=== PATIENT | female | born 1945 | race Caucasian/White ===

== ENCOUNTER 2020-09-01 20:45 | Inpatient (IN) ==
[2020-09-01] MEDS ORDERED: ALBUTEROL/IPRATROPIUM 3 ML NEB RESP TX STA (21:30)
[2020-09-01 21:32] LABS: Basophils % 0.2 % (0.0-0.8); Hematocrit 47.6 VOL% (35.7-47.0); Hemoglobin 14.7 GM/DL (12.0-16.0); Immature Granulocytes % 0.5 %; Immature Granulocytes Absolute 0.04 #; Lymphocytes # 0.6 10*3/uL (1.4-4.0); Lymphocytes % 6.8 % (21.3-54.2); Mean Corpuscular HGB Conc 30.9 GM/DL (32-36); Mean Corpuscular Volume 97.3 FL (87-102); Mean Platelet Volume 10.4 FL (9.6-12.0); Monocytes % 5.3 % (1.7-12.7); NRBC # 0.02 10*3/uL; Neutrophils % 87.2 % (38.7-73.9); Platelet Count 231 T/CUMM (130-400); Red Blood Count 4.89 MC/CUMM (3.8-5.5); Red Cell Distribution Width 16.6 % (9.3-17.3); White Blood Count 8.4 T/CUMM (4-12)
[2020-09-01 21:52] LABS: INR 1.1; PT Patient Result 11.8 SECS (9.8-11.9); Partial Thromboplastin Time 25.6 SECS (23.9-33.8)
[2020-09-01 21:53] LABS: Thyroid Stimulating Hormone 2.19 uIU/ml (0.358-3.74)
[2020-09-01 21:57] LABS: Alanine Aminotransferase 34 U/L (13-56); Albumin 2.8 G/DL (3.4-5.0); Alkaline Phosphatase 90 U/L (45-117); Aspartate Amino Transferase 74 U/L (0-37); Blood Urea Nitrogen 30 MG/DL (7-18); CKMB % 1.1 %; Calcium 9.2 MG/DL (8.5-10.1); Carbon Dioxide 25 MMOL/L (21-32); Estimated Glom Filtration Rate 62 ML/MIN; Glucose 202 MG/DL (74-106); Osmolality,Calculated 294.1 MOS/KG (273-304); Potassium 4.2 MMOL/L (3.5-5.1); Sodium 142 MMOL/L (136-145); Total Protein 7.5 G/DL (6.4-8.3); Troponin I < 0.015 NG/ML (0.00-0.045)
[2020-09-01 21:59] LABS: Bacteria,Urine Moderate /HPF (Few); Bilirubin,Urine Negative (Negative); Blood, Urine Large mg/dL (Negative); Glucose,Urine (UA) 50 mg/dL (Negative); Ketones,Urine Negative (Negative); Mucus,Urine Occasional /LPF (Occasional); Nitrite,Urine Negative (Negative); Protein,Urine 100 MG/DL; RBC,Urine <1 /HPF (0-4); Squamous Epithelial Cell,Urine Occasional /HPF (0-10); Urine Appearance CLEAR (Clear); Urine Color Yellow (Yellow); Urine Urobilinogen < 2.0 EU/DL (0.2-1.0); WBC,Urine 1 /HPF (0-6)
[2020-09-01] MEDS ORDERED: SODIUM CHLORIDE 0.9% 1,000 ML IV STA (22:20)
[2020-09-01 22:36] LABS: Barbiturates Screen,Urine Negative (Negative); Benzodiazepines Screen,Urine Negative (Negative); Cannabinoid Screen,Urine Negative (Negative); Opiate Screen,Urine Negative (Negative); Phencyclidine Screen,Urine Negative (Negative)
[2020-09-01] MEDS ORDERED: hydrALAZINE 20 MG/1 ML VIAL IV STA (23:18)
[2020-09-01] MEDS ORDERED: hydrALAZINE 20 MG/1 ML VIAL ONE (23:18)
[2020-09-01] MEDS ORDERED: ROCURONIUM 100 MG/10 ML VIAL IV ONE (23:44)
[2020-09-01] MEDS ORDERED: ETOMIDATE 20 MG/10 ML VIAL IV ONE (23:44)
[2020-09-02] MEDS ORDERED: DEXTROSE 50% 25 GM/50 ML SYRINGE IV ONE (00:30)
[2020-09-02 00:33] LABS: ABG HCO3 24.4 MMOL/L (20-26); ABG Oxygen Saturation 99.9 % (95-100); ABG PCO2 34.2 MM HG (35-48); ABG PH 7.443 (7.35-7.45); ABG TCO2 19.7 MMOL/L (23-27); Allen Test Positive; Pt O2 Delivery Device Ventilator
[2020-09-02] MEDS ORDERED: ALBUTEROL 2.5 MG/3 ML NEB RESP TX PRN (00:35)
[2020-09-02] MEDS ORDERED: DEXTROSE 50% 25 GM/50 ML VIAL IV PRN (00:54)
[2020-09-02] MEDS ORDERED: GLUCAGON 1 MG VIAL IM PRN (00:54)
[2020-09-02] MEDS: ENOXAPARIN 40 MG/0.4 ML SYRINGE SUBCUT SCH (02:00)
[2020-09-02] MEDS: DEXTROSE 5% NACL 0.9% 1,000 ML IV SCH ×3 (02:00→20:34)
[2020-09-02] MEDS: HYDROCORTISONE 100 MG VIAL IV SCH ×2 (02:00→13:30)
[2020-09-02 02:46] LABS: ABG Base Excess -0.6 MMOL/L (-2.5-2.5); ABG HCO3 22.9 MMOL/L (20-26); ABG Oxygen Saturation 97.9 % (95-100); ABG PCO2 34.6 MM HG (35-48); ABG PH 7.438 (7.35-7.45); ABG PO2 108.8 MM HG (80-95); ABG TCO2 23.9 MMOL/L (23-27); Allen Test Positive; Pt O2 Delivery Device Ventilator
[2020-09-02 02:48] LABS: CKMB % 0.9 %; Troponin I < 0.015 NG/ML (0.00-0.045)
[2020-09-02] MEDS: INSULIN REGULAR 100 UNIT/ML SUBCUT SCH ×6 (03:37→21:21)
[2020-09-02 04:19] LABS: Alanine Aminotransferase 35 U/L (13-56); Albumin 2.7 G/DL (3.4-5.0); Alkaline Phosphatase 93 U/L (45-117); Aspartate Amino Transferase 82 U/L (0-37); Blood Urea Nitrogen 24 MG/DL (7-18); CKMB % 0.8 %; Carbon Dioxide 27 MMOL/L (21-32); Estimated Glom Filtration Rate 62 ML/MIN; Free T4 (Free Thyroxine) 1.14 NG/DL (0.76-1.46); Glucose 150 MG/DL (74-106); HDL Cholesterol 56 MG/DL (40-60); Osmolality,Calculated 289.1 MOS/KG (273-304); Potassium 4.4 MMOL/L (3.5-5.1); Risk Ratio 2.82; Sodium 142 MMOL/L (136-145); Total Protein 7.4 G/DL (6.4-8.3); Triglycerides 93 MG/DL (2-150); Troponin I < 0.015 NG/ML (0.00-0.045); VLDL CHOLESTEROL 18.6 MG/DL
[2020-09-02 04:29] LABS: Basophils % 0.1 % (0.0-0.8); Hematocrit 51.6 VOL% (35.7-47.0); Immature Granulocytes % 0.4 %; Immature Granulocytes Absolute 0.04 #; Lymphocytes % 8.9 % (21.3-54.2); Mean Corpuscular HGB Conc 29.7 GM/DL (32-36); Mean Corpuscular Volume 101.4 FL (87-102); Mean Platelet Volume 10.2 FL (9.6-12.0); Monocytes % 8.3 % (1.7-12.7); Neutrophils % 82.3 % (38.7-73.9); Platelet Count 267 T/CUMM (130-400); Red Blood Count 5.09 MC/CUMM (3.8-5.5); Red Cell Distribution Width 16.7 % (9.3-17.3); White Blood Count 10.9 T/CUMM (4-12)
[2020-09-02 04:31] LABS: Hemoglobin 15.3 GM/DL (12.0-16.0)
[2020-09-02] MEDS: LEVOTHYROXINE 50 MCG TABLET PO SCH (08:18)
[2020-09-02] MEDS: LOSARTAN 25 MG TABLET PO SCH ×2 (08:45→09:04)
[2020-09-02] MEDS: carvediloL 6.25 MG TABLET PO SCH ×3 (08:45→20:29)
[2020-09-02] MEDS: ROSUVASTATIN 20 MG TABLET PO SCH (08:45)
[2020-09-02] MEDS: DESITIN 4OZ/NYSTATIN 15 GRAM MIXTURE PASTE TOP SCH ×2 (16:24→20:29)
[2020-09-03] MEDS: DEXTROSE 5% NACL 0.9% 1,000 ML IV SCH ×2 (00:30→07:00)
[2020-09-03] MEDS: INSULIN REGULAR 100 UNIT/ML SUBCUT SCH ×7 (01:00→20:00)
[2020-09-03] MEDS: ENOXAPARIN 40 MG/0.4 ML SYRINGE SUBCUT SCH (02:00)
[2020-09-03] MEDS: HYDROCORTISONE 100 MG VIAL IV SCH ×2 (02:05→12:00)
[2020-09-03 04:26] LABS: ABG Base Excess 0.9 MMOL/L (-2.5-2.5); ABG HCO3 25.3 MMOL/L (20-26); ABG Oxygen Saturation 99.8 % (95-100); ABG PCO2 39.4 MM HG (35-48); ABG PH 7.417 (7.35-7.45); ABG TCO2 22.2 MMOL/L (23-27)
[2020-09-03 05:00] LABS: Basophils % 0.2 % (0.0-0.8); Hematocrit 42.6 VOL% (35.7-47.0); Hemoglobin 12.6 GM/DL (12.0-16.0); Immature Granulocytes % 0.5 %; Immature Granulocytes Absolute 0.06 #; Lymphocytes # 0.8 10*3/uL (1.4-4.0); Lymphocytes % 6.4 % (21.3-54.2); Mean Corpuscular HGB Conc 29.6 GM/DL (32-36); Mean Corpuscular Volume 100.9 FL (87-102); Mean Platelet Volume 10.2 FL (9.6-12.0); Monocytes % 9.9 % (1.7-12.7); Platelet Count 244 T/CUMM (130-400); Red Blood Count 4.22 MC/CUMM (3.8-5.5); Red Cell Distribution Width 16.7 % (9.3-17.3); White Blood Count 12.8 T/CUMM (4-12)
[2020-09-03 05:09] LABS: Osmolality,Calculated 300.6 MOS/KG (273-304); Potassium 4.2 MMOL/L (3.5-5.1)
[2020-09-03] MEDS: LEVOTHYROXINE 50 MCG TABLET PO SCH (06:45)
[2020-09-03] MEDS: PANTOPRAZOLE 40 MG VIAL IV SCH (08:45)
[2020-09-03] MEDS: ROSUVASTATIN 20 MG TABLET PO SCH (08:45)
[2020-09-03] MEDS: carvediloL 6.25 MG TABLET PO SCH ×2 (08:45→21:41)
[2020-09-03] MEDS: DESITIN 4OZ/NYSTATIN 15 GRAM MIXTURE PASTE TOP SCH ×2 (08:45→21:41)
[2020-09-03] MEDS: LOSARTAN 25 MG TABLET PO SCH (08:45)
[2020-09-03] MEDS: amLODIPine 10 MG TABLET PER TUBE SCH (09:56)
[2020-09-03] MEDS: LINEZOLID INJ 600 MG in PREMIX 1 EACH IV SCH ×2 (10:41→21:40)
[2020-09-03] MEDS ORDERED: HYDROCORTISONE 100 MG VIAL ONE (11:55)
[2020-09-04] MEDS: HYDROCORTISONE 100 MG VIAL IV SCH ×2 (00:45→13:10)
[2020-09-04] MEDS: INSULIN REGULAR 100 UNIT/ML SUBCUT SCH ×6 (00:45→20:57)
[2020-09-04] MEDS: ENOXAPARIN 40 MG/0.4 ML SYRINGE SUBCUT SCH (00:45)
[2020-09-04 04:20] LABS: Basophils % 0.1 % (0.0-0.8); Hematocrit 38.2 VOL% (35.7-47.0); Hemoglobin 11.8 GM/DL (12.0-16.0); Immature Granulocytes % 0.4 %; Immature Granulocytes Absolute 0.06 #; Lymphocytes % 7.6 % (21.3-54.2); Mean Corpuscular HGB Conc 30.9 GM/DL (32-36); Mean Platelet Volume 10.5 FL (9.6-12.0); Monocytes % 8.3 % (1.7-12.7); Neutrophils % 83.6 % (38.7-73.9); Platelet Count 189 T/CUMM (130-400); Red Blood Count 3.82 MC/CUMM (3.8-5.5); Red Cell Distribution Width 16.5 % (9.3-17.3); White Blood Count 13.7 T/CUMM (4-12)
[2020-09-04 04:37] LABS: Calcium 8.4 MG/DL (8.5-10.1)
[2020-09-04 05:00] LABS: ABG Base Excess -1.3 MMOL/L (-2.5-2.5); ABG HCO3 23.7 MMOL/L (20-26); ABG Oxygen Saturation 98.2 % (95-100); ABG PCO2 40.8 MM HG (35-48); ABG PH 7.382 (7.35-7.45); ABG PO2 122.3 MM HG (80-95); Allen Test Positive; Pt O2 Delivery Device Ventilator
[2020-09-04] MEDS: LEVOTHYROXINE 50 MCG TABLET PO SCH (06:36)
[2020-09-04] MEDS: PANTOPRAZOLE 40 MG VIAL IV SCH (08:55)
[2020-09-04] MEDS: LINEZOLID INJ 600 MG in PREMIX 1 EACH IV SCH ×2 (09:05→21:01)
[2020-09-04] MEDS: ROSUVASTATIN 20 MG TABLET PO SCH (09:10)
[2020-09-04] MEDS: amLODIPine 10 MG TABLET PER TUBE SCH (09:10)
[2020-09-04] MEDS: carvediloL 6.25 MG TABLET PO SCH ×2 (09:10→20:58)
[2020-09-04] MEDS: DESITIN 4OZ/NYSTATIN 15 GRAM MIXTURE PASTE TOP SCH ×2 (10:05→20:58)
[2020-09-04] MEDS: LEVOFLOXACIN INJ 750 MG in PREMIX 1 EACH IV SCH (11:35)
[2020-09-04] MEDS: MORPHINE 4 MG/1 ML VIAL IV PRN (18:19)
[2020-09-04] MEDS ORDERED: HYDROCORTISONE 100 MG VIAL IV SCH (21:00)
[2020-09-05] MEDS: INSULIN REGULAR 100 UNIT/ML SUBCUT SCH ×7 (01:00→23:49)
[2020-09-05] MEDS: ENOXAPARIN 40 MG/0.4 ML SYRINGE SUBCUT SCH (01:30)
[2020-09-05 03:26] LABS: ABG Base Excess 1.1 MMOL/L (-2.5-2.5); ABG HCO3 25.4 MMOL/L (20-26); ABG Oxygen Saturation 98.6 % (95-100); ABG PCO2 42.6 MM HG (35-48); ABG PH 7.396 (7.35-7.45); ABG TCO2 23.5 MMOL/L (23-27)
[2020-09-05] MEDS: LEVOTHYROXINE 50 MCG TABLET PO SCH (06:05)
[2020-09-05 06:27] LABS: Basophils % 0.2 % (0.0-0.8); Hematocrit 36.4 VOL% (35.7-47.0); Hemoglobin 10.9 GM/DL (12.0-16.0); Immature Granulocytes % 0.8 %; Immature Granulocytes Absolute 0.08 #; Lymphocytes # 1.6 10*3/uL (1.4-4.0); Mean Corpuscular HGB Conc 29.9 GM/DL (32-36); Mean Corpuscular Volume 99.7 FL (87-102); Mean Platelet Volume 10.4 FL (9.6-12.0); Monocytes % 8.6 % (1.7-12.7); Neutrophils % 74.4 % (38.7-73.9); Platelet Count 182 T/CUMM (130-400); Red Blood Count 3.65 MC/CUMM (3.8-5.5); Red Cell Distribution Width 16.3 % (9.3-17.3)
[2020-09-05 06:42] LABS: Calcium 8.6 MG/DL (8.5-10.1); Osmolality,Calculated 295.1 MOS/KG (273-304); Potassium 4.2 MMOL/L (3.5-5.1)
[2020-09-05] MEDS: HYDROCORTISONE 100 MG VIAL IV SCH (08:10)
[2020-09-05] MEDS: PANTOPRAZOLE 40 MG VIAL IV SCH (08:10)
[2020-09-05] MEDS: ROSUVASTATIN 20 MG TABLET PO SCH (08:15)
[2020-09-05] MEDS: LINEZOLID INJ 600 MG in PREMIX 1 EACH IV SCH (08:15)
[2020-09-05] MEDS: amLODIPine 10 MG TABLET PER TUBE SCH (08:15)
[2020-09-05] MEDS: carvediloL 6.25 MG TABLET PO SCH ×2 (08:15→22:27)
[2020-09-05] MEDS: LINEZOLID 600 MG TABLET PER TUBE SCH ×2 (11:00→21:40)
[2020-09-05] MEDS: FAMOTIDINE 8 MG/ML 50 ML/BOTTLE PER TUBE SCH ×2 (11:00→21:41)
[2020-09-05] MEDS: HYDROCORTISONE 10 MG TABLET PER TUBE SCH ×2 (11:00→21:41)
[2020-09-05] MEDS: LEVOFLOXACIN INJ 750 MG in PREMIX 1 EACH IV SCH (11:05)
[2020-09-05] MEDS: MORPHINE 4 MG/1 ML VIAL IV PRN (15:15)
[2020-09-05] MEDS: DESITIN 4OZ/NYSTATIN 15 GRAM MIXTURE PASTE TOP SCH ×2 (16:15→21:41)
[2020-09-06] MEDS: ENOXAPARIN 40 MG/0.4 ML SYRINGE SUBCUT SCH (00:38)
[2020-09-06 03:51] LABS: ABG Base Excess 0.6 MMOL/L (-2.5-2.5); ABG HCO3 24.9 MMOL/L (20-26); ABG Oxygen Saturation 93.2 % (95-100); ABG PCO2 43.1 MM HG (35-48); ABG PH 7.385 (7.35-7.45); ABG PO2 68.7 MM HG (80-95); ABG TCO2 23.3 MMOL/L (23-27); Allen Test Positive; Pt O2 Delivery Device Ventilator
[2020-09-06 04:16] LABS: Basophils % 0.4 % (0.0-0.8); Hematocrit 35.8 VOL% (35.7-47.0); Hemoglobin 10.9 GM/DL (12.0-16.0); Immature Granulocytes % 1.4 %; Immature Granulocytes Absolute 0.13 #; Lymphocytes # 1.3 10*3/uL (1.4-4.0); Lymphocytes % 13.8 % (21.3-54.2); Mean Corpuscular HGB Conc 30.4 GM/DL (32-36); Mean Corpuscular Volume 99.7 FL (87-102); Mean Platelet Volume 10.9 FL (9.6-12.0); Monocytes % 7.4 % (1.7-12.7); Platelet Count 170 T/CUMM (130-400); Red Blood Count 3.59 MC/CUMM (3.8-5.5); Red Cell Distribution Width 16.3 % (9.3-17.3); White Blood Count 9.1 T/CUMM (4-12)
[2020-09-06] MEDS: INSULIN REGULAR 100 UNIT/ML SUBCUT SCH ×6 (04:24→23:50)
[2020-09-06 04:37] LABS: Calcium 8.5 MG/DL (8.5-10.1); Osmolality,Calculated 290.7 MOS/KG (273-304); Potassium 4.5 MMOL/L (3.5-5.1)
[2020-09-06] MEDS: LEVOTHYROXINE 50 MCG TABLET PO SCH (05:19)
[2020-09-06] MEDS: FAMOTIDINE 8 MG/ML 50 ML/BOTTLE PER TUBE SCH ×2 (08:05→21:43)
[2020-09-06] MEDS: HYDROCORTISONE 10 MG TABLET PER TUBE SCH ×2 (08:05→21:43)
[2020-09-06] MEDS: amLODIPine 10 MG TABLET PER TUBE SCH (08:05)
[2020-09-06] MEDS: ROSUVASTATIN 20 MG TABLET PO SCH (08:05)
[2020-09-06] MEDS: LINEZOLID 600 MG TABLET PER TUBE SCH ×2 (08:05→21:43)
[2020-09-06] MEDS: carvediloL 6.25 MG TABLET PO SCH ×2 (08:17→21:43)
[2020-09-06] MEDS: DESITIN 4OZ/NYSTATIN 15 GRAM MIXTURE PASTE TOP SCH ×2 (08:17→21:43)
[2020-09-06 09:56] LABS: HIV Antigen/Antibody Result Nonreactive (Nonreactive); Hepatitis B Surface Ag Quant < 0.10 Index; Hepatitis B Surface Ag Result Non-Reactive (NonReactive); Hepatitis C Virus Ab Quant 0.02 Index; Hepatitis C Virus Ab Result Non-Reactive (NonReactive)
[2020-09-06] MEDS: LEVOFLOXACIN INJ 750 MG in PREMIX 1 EACH IV SCH (11:57)
[2020-09-06] MEDS: ACETAMINOPHEN 325 MG TABLET PO PRN (12:20)
[2020-09-07] MEDS: ENOXAPARIN 40 MG/0.4 ML SYRINGE SUBCUT SCH (00:39)
[2020-09-07] MEDS: INSULIN REGULAR 100 UNIT/ML SUBCUT SCH ×6 (03:47→23:38)
[2020-09-07 04:40] LABS: ABG Base Excess 2.2 MMOL/L (-2.5-2.5); ABG HCO3 26.5 MMOL/L (20-26); ABG PH 7.439 (7.35-7.45); ABG PO2 90.1 MM HG (80-95); ABG TCO2 27.7 MMOL/L (23-27); Allen Test Positive
[2020-09-07 05:28] LABS: Calcium 8.5 MG/DL (8.5-10.1); Potassium 4.9 MMOL/L (3.5-5.1)
[2020-09-07] MEDS: LEVOTHYROXINE 50 MCG TABLET PO SCH (06:08)
[2020-09-07 06:37] LABS: Basophils % 0.6 % (0.0-0.8); Hematocrit 41.9 VOL% (35.7-47.0); Hemoglobin 11.9 GM/DL (12.0-16.0); Immature Granulocytes % 1.9 %; Immature Granulocytes Absolute 0.12 #; Lymphocytes # 1.7 10*3/uL (1.4-4.0); Lymphocytes % 26.1 % (21.3-54.2); Mean Corpuscular HGB Conc 28.4 GM/DL (32-36); Mean Corpuscular Volume 103.7 FL (87-102); Mean Platelet Volume 11.6 FL (9.6-12.0); Monocytes % 11.8 % (1.7-12.7); Neutrophils % 59.6 % (38.7-73.9); Platelet Count 163 T/CUMM (130-400); Red Blood Count 4.04 MC/CUMM (3.8-5.5); Red Cell Distribution Width 16.1 % (9.3-17.3); White Blood Count 6.4 T/CUMM (4-12)
[2020-09-07 06:48] LABS: Hypochromasia Slight
[2020-09-07 06:49] LABS: Anisocytosis 1+; Microcytosis 1+; Platelet Estimate Adequate
[2020-09-07] MEDS: HYDROCORTISONE 10 MG TABLET PER TUBE SCH ×2 (08:32→19:01)
[2020-09-07] MEDS: LINEZOLID 600 MG TABLET PER TUBE SCH (08:32)
[2020-09-07] MEDS: amLODIPine 10 MG TABLET PER TUBE SCH (08:32)
[2020-09-07] MEDS: carvediloL 6.25 MG TABLET PO SCH ×3 (08:32→21:12)
[2020-09-07] MEDS: FAMOTIDINE 8 MG/ML 50 ML/BOTTLE PER TUBE SCH ×2 (08:32→21:12)
[2020-09-07] MEDS: ROSUVASTATIN 20 MG TABLET PO SCH (08:32)
[2020-09-07] MEDS: DESITIN 4OZ/NYSTATIN 15 GRAM MIXTURE PASTE TOP SCH ×2 (08:51→21:12)
[2020-09-07] MEDS ORDERED: hydrALAZINE 20 MG/1 ML VIAL IV PRN (08:54)
[2020-09-07] MEDS: LEVOFLOXACIN 750 MG TABLET PO SCH (10:05)
[2020-09-07] MEDS: FUROSEMIDE 40 MG TABLET PO SCH (10:05)
[2020-09-08] MEDS: ENOXAPARIN 40 MG/0.4 ML SYRINGE SUBCUT SCH (01:01)
[2020-09-08] MEDS: INSULIN REGULAR 100 UNIT/ML SUBCUT SCH ×5 (04:01→21:15)
[2020-09-08 04:28] LABS: ABG Base Excess 5.4 MMOL/L (-2.5-2.5); ABG HCO3 29.3 MMOL/L (20-26); ABG Oxygen Saturation 95.9 % (95-100); ABG PCO2 46.6 MM HG (35-48); ABG PH 7.426 (7.35-7.45); ABG PO2 79.9 MM HG (80-95); ABG TCO2 27.2 MMOL/L (23-27); Allen Test Positive
[2020-09-08 05:47] LABS: Calcium 9.1 MG/DL (8.5-10.1); Osmolality,Calculated 288.1 MOS/KG (273-304)
[2020-09-08 06:04] LABS: Basophils % 0.4 % (0.0-0.8); Hematocrit 38.5 VOL% (35.7-47.0); Immature Granulocytes % 1.4 %; Immature Granulocytes Absolute 0.08 #; Lymphocytes # 1.4 10*3/uL (1.4-4.0); Lymphocytes % 25.2 % (21.3-54.2); Mean Corpuscular HGB Conc 29.9 GM/DL (32-36); Mean Platelet Volume 10.5 FL (9.6-12.0); Monocytes % 12.3 % (1.7-12.7); Neutrophils % 60.7 % (38.7-73.9); Platelet Count 165 T/CUMM (130-400); Red Blood Count 3.89 MC/CUMM (3.8-5.5); Red Cell Distribution Width 16.1 % (9.3-17.3); White Blood Count 5.7 T/CUMM (4-12)
[2020-09-08 06:05] LABS: Hemoglobin 11.5 GM/DL (12.0-16.0)
[2020-09-08] MEDS: LEVOTHYROXINE 50 MCG TABLET PO SCH (06:11)
[2020-09-08] MEDS: DEXTROSE 5% NACL 0.9% 1,000 ML IV SCH (08:47)
[2020-09-08] MEDS: ROSUVASTATIN 20 MG TABLET PO SCH (09:52)
[2020-09-08] MEDS: carvediloL 6.25 MG TABLET PO SCH ×2 (09:52→21:10)
[2020-09-08] MEDS: LEVOFLOXACIN 750 MG TABLET PO SCH (09:53)
[2020-09-08] MEDS: FUROSEMIDE 40 MG TABLET PO SCH (09:53)
[2020-09-08] MEDS: FAMOTIDINE 8 MG/ML 50 ML/BOTTLE PER TUBE SCH ×2 (09:53→21:56)
[2020-09-08] MEDS: amLODIPine 10 MG TABLET PER TUBE SCH (09:53)
[2020-09-08] MEDS: DESITIN 4OZ/NYSTATIN 15 GRAM MIXTURE PASTE TOP SCH ×2 (09:53→21:56)
[2020-09-09] MEDS: DEXTROSE 5% NACL 0.9% 1,000 ML IV SCH ×2 (00:14→13:14)
[2020-09-09] MEDS: INSULIN REGULAR 100 UNIT/ML SUBCUT SCH ×6 (01:58→20:56)
[2020-09-09] MEDS: LEVOTHYROXINE 50 MCG TABLET PO SCH (06:21)
[2020-09-09 06:29] LABS: Calcium 8.4 MG/DL (8.5-10.1); Osmolality,Calculated 286.4 MOS/KG (273-304); Potassium 3.9 MMOL/L (3.5-5.1)
[2020-09-09 06:32] LABS: Basophils % 0.3 % (0.0-0.8); Hematocrit 36.6 VOL% (35.7-47.0); Hemoglobin 11.2 GM/DL (12.0-16.0); Immature Granulocytes Absolute 0.06 #; Lymphocytes # 1.6 10*3/uL (1.4-4.0); Lymphocytes % 26.8 % (21.3-54.2); Mean Corpuscular HGB Conc 30.6 GM/DL (32-36); Mean Corpuscular Volume 97.3 FL (87-102); Mean Platelet Volume 10.9 FL (9.6-12.0); Monocytes % 11.3 % (1.7-12.7); Neutrophils % 60.6 % (38.7-73.9); Platelet Count 155 T/CUMM (130-400); Red Blood Count 3.76 MC/CUMM (3.8-5.5); White Blood Count 5.8 T/CUMM (4-12)
[2020-09-09] MEDS: DESITIN 4OZ/NYSTATIN 15 GRAM MIXTURE PASTE TOP SCH ×2 (10:00→20:57)
[2020-09-09] MEDS: carvediloL 6.25 MG TABLET PO SCH ×2 (10:00→20:56)
[2020-09-09] MEDS: FAMOTIDINE 8 MG/ML 50 ML/BOTTLE PER TUBE SCH ×2 (10:00→20:56)
[2020-09-09] MEDS: ROSUVASTATIN 20 MG TABLET PO SCH (10:00)
[2020-09-09] MEDS: ENOXAPARIN 40 MG/0.4 ML SYRINGE SUBCUT SCH (10:00)
[2020-09-09] MEDS: FUROSEMIDE 40 MG TABLET PO SCH (10:00)
[2020-09-09] MEDS: LEVOFLOXACIN 750 MG TABLET PO SCH (10:00)
[2020-09-09] MEDS: amLODIPine 10 MG TABLET PER TUBE SCH (10:00)
[2020-09-10] MEDS: INSULIN REGULAR 100 UNIT/ML SUBCUT SCH ×6 (00:15→20:39)
[2020-09-10] MEDS: DEXTROSE 5% NACL 0.9% 1,000 ML IV SCH ×2 (02:22→16:09)
[2020-09-10 05:51] LABS: Calcium 8.7 MG/DL (8.5-10.1); Osmolality,Calculated 282.4 MOS/KG (273-304); Potassium 3.2 MMOL/L (3.5-5.1)
[2020-09-10 06:09] LABS: Basophils % 0.2 % (0.0-0.8); Hematocrit 40.8 VOL% (35.7-47.0); Hemoglobin 12.1 GM/DL (12.0-16.0); Immature Granulocytes % 1.1 %; Immature Granulocytes Absolute 0.07 #; Lymphocytes # 1.7 10*3/uL (1.4-4.0); Lymphocytes % 25.1 % (21.3-54.2); Mean Corpuscular HGB Conc 29.7 GM/DL (32-36); Mean Corpuscular Volume 99.3 FL (87-102); Mean Platelet Volume 10.1 FL (9.6-12.0); Monocytes % 11.4 % (1.7-12.7); Neutrophils % 62.2 % (38.7-73.9); Platelet Count 155 T/CUMM (130-400); Red Blood Count 4.11 MC/CUMM (3.8-5.5); Red Cell Distribution Width 16.2 % (9.3-17.3); White Blood Count 6.6 T/CUMM (4-12)
[2020-09-10] MEDS: LEVOTHYROXINE 50 MCG TABLET PO SCH (06:13)
[2020-09-10] MEDS ORDERED: TUBERCULIN SKIN TEST 0.1 ML SYRINGE INTRADERM ONE (07:34)
[2020-09-10] MEDS: carvediloL 6.25 MG TABLET PO SCH ×2 (09:22→20:39)
[2020-09-10] MEDS: DESITIN 4OZ/NYSTATIN 15 GRAM MIXTURE PASTE TOP SCH ×2 (09:23→20:39)
[2020-09-10] MEDS: FUROSEMIDE 40 MG TABLET PO SCH (09:23)
[2020-09-10] MEDS: amLODIPine 10 MG TABLET PER TUBE SCH (09:23)
[2020-09-10] MEDS: LEVOFLOXACIN 750 MG TABLET PO SCH (09:23)
[2020-09-10] MEDS: ROSUVASTATIN 20 MG TABLET PO SCH (09:23)
[2020-09-10] MEDS: ENOXAPARIN 40 MG/0.4 ML SYRINGE SUBCUT SCH (09:23)
[2020-09-10] MEDS: FAMOTIDINE 8 MG/ML 50 ML/BOTTLE PER TUBE SCH ×2 (09:24→20:40)
[2020-09-10] MEDS: POTASSIUM CHLORIDE 8 MEQ CAPSULE PO SCH (09:27)
[2020-09-11] MEDS: INSULIN REGULAR 100 UNIT/ML SUBCUT SCH ×3 (00:02→08:52)
[2020-09-11 05:39] LABS: Calcium 8.4 MG/DL (8.5-10.1); Osmolality,Calculated 282.4 MOS/KG (273-304); Potassium 3.3 MMOL/L (3.5-5.1)
[2020-09-11] MEDS: DEXTROSE 5% NACL 0.9% 1,000 ML IV SCH (05:44)
[2020-09-11 07:10] LABS: Basophils % 0.2 % (0.0-0.8); Hematocrit 38.5 VOL% (35.7-47.0); Hemoglobin 11.5 GM/DL (12.0-16.0); Immature Granulocytes % 0.6 %; Immature Granulocytes Absolute 0.04 #; Lymphocytes # 1.4 10*3/uL (1.4-4.0); Lymphocytes % 22.6 % (21.3-54.2); Mean Corpuscular HGB Conc 29.9 GM/DL (32-36); Mean Corpuscular Volume 98.2 FL (87-102); Mean Platelet Volume 10.3 FL (9.6-12.0); Monocytes % 13.1 % (1.7-12.7); Neutrophils % 63.5 % (38.7-73.9); Platelet Count 133 T/CUMM (130-400); Red Blood Count 3.92 MC/CUMM (3.8-5.5); Red Cell Distribution Width 15.9 % (9.3-17.3); White Blood Count 6.3 T/CUMM (4-12)
[2020-09-11 07:45] VITALS: BP 128/54
[2020-09-11] MEDS: ENOXAPARIN 40 MG/0.4 ML SYRINGE SUBCUT SCH (08:47)
[2020-09-11] MEDS: ROSUVASTATIN 20 MG TABLET PO SCH (08:51)
[2020-09-11] MEDS: ACETAMINOPHEN 325 MG TABLET PO PRN (08:51)
[2020-09-11] MEDS: POTASSIUM CHLORIDE 8 MEQ CAPSULE PO SCH (08:51)
[2020-09-11] MEDS: carvediloL 6.25 MG TABLET PO SCH (08:52)
[2020-09-11] MEDS: LEVOFLOXACIN 750 MG TABLET PO SCH (08:52)
[2020-09-11] MEDS: LEVOTHYROXINE 50 MCG TABLET PO SCH (08:52)
[2020-09-11] MEDS: FUROSEMIDE 40 MG TABLET PO SCH (08:52)
[2020-09-11] MEDS: amLODIPine 10 MG TABLET PER TUBE SCH (08:52)
[2020-09-11] MEDS: FAMOTIDINE 8 MG/ML 50 ML/BOTTLE PER TUBE SCH (08:53)
[2020-09-11] MEDS: DESITIN 4OZ/NYSTATIN 15 GRAM MIXTURE PASTE TOP SCH (08:53)
== END 2020-09-11 10:47 | disposition swing bed (61) | DRG 207 ==
LOC: EDUNIT# → N.ED 20:45 → N.EDINP 09-02 00:35 → SUATTDRO 09-02 00:35 → N.ICU 09-02 10:43 → N.5E 09-07 13:45
PROVIDERS: ADMIT Internal Medicine; ATTEND Internal Medicine